=== PATIENT | male | born 1945 | race Caucasian/White ===

== ENCOUNTER 2016-11-28 14:57 | Emergency (ER) | payer OTHER ==
[~2016-11-28] VITALS: Ht 177.8 cm; Wt 108.9 kg
--- NOTE | 2016-11-28 15:11 | NUR ---
ARRIVAL PT ARRIVED AMBULATORY TO ER 4 C/O "HIGH BLOOD SUGAR". PT STATES BLOOD GLUCOSE WAS 500MG/DL AT HOME, [facility]. PT DENIES ANY SYMPTOMS. NO ACUTE DISTRESS NOTED. EDP NOTIFIED OF PT ARRIVAL.
--- NOTE | 2016-11-28 15:15 | NUR ---
BLOOD GLUCOSE PT BLOOD GLUCOSE 439MG/DL AT THIS TIME. EDP NOTIFIED.
[2016-11-28] MEDS ORDERED: LISI-410 PO (15:23)
[2016-11-28] MEDS ORDERED: CARV25TA PO (15:23)
[2016-11-28] MEDS ORDERED: GLIP10TA13 PO (15:23)
[2016-11-28] MEDS ORDERED: ASPI-484 PO (15:23)
[2016-11-28] MEDS ORDERED: METF10002 PO (15:23)
[2016-11-28] MEDS ORDERED: MAGN400C PO (15:23)
[2016-11-28] MEDS ORDERED: HYDR12.58 PO (15:23)
[2016-11-28] MEDS ORDERED: WARF5TAB7 PO (15:23)
[2016-11-28] MEDS ORDERED: PRAV40TA2 PO (15:23)
--- NOTE | 2016-11-28 15:24 | ER.PDOC ---
General Chief Complaint: Requesting Medical Care Stated Complaint: HIGH BLOOD SUGAR TRAVEL OUT OF US: No Time seen by MD: 15:17 Source: patient Exam Limitations: no limitations History of Present Illness Initial Comments Pt found to have elevated BG no symptoms whatsoever Timing/Duration: unsure Severity: mild Allergies: Coded Allergies: codeine (Verified Allergy, Unknown, Shortness of Breath, 11/28/16) morphine (Verified Allergy, Unknown, Shortness of Breath, 11/28/16) Home Meds Reported Medications Aspirin (ASPIR 81) 81 Mg Tablet.dr, 1 TAB PO DAILY, #30 TAB 5 Refills 11/28/16 Pravastatin Sodium (PRAVASTATIN SODIUM) 40 Mg Tablet, 1 TAB PO DAILY, #90 TAB 1 Refill 11/28/16 Warfarin Sodium (WARFARIN SODIUM) 5 Mg Tablet, 1 TAB PO DAILY, #90 TAB 1 Refill 11/28/16 Magnesium Oxide (MAGNESIUM) 400 Mg Capsule, 250 MG PO DAILY, CAPSULE 11/28/16 Hydrochlorothiazide (HYDROCHLOROTHIAZIDE) 12.5 Mg Tablet, 1 TAB PO DAILY, #30 TAB 5 Refills 11/28/16 Lisinopril (LISINOPRIL) 20 Mg Tablet, 1 TAB PO DAILY, #30 TAB 5 Refills 11/28/16 Carvedilol 25MG (COREG 25MG) 25 Mg Tablet, 1 TAB PO BID, #60 TAB 5 Refills 11/28/16 Metformin Hcl (METFORMIN HCL) 1,000 Mg Tablet, 1 TAB PO BID, #60 TAB 5 Refills 11/28/16 Glipizide (GLIPIZIDE) 10 Mg Tablet, 2 TAB PO BID, #180 TAB 3 Refills 11/28/16 Reviewed Nursing Reviewed: Vital Signs, Abn. Noted, Nursing Assessment Review of Systems Constitutional: see HPI EENTM: see HPI Respiratory: see HPI Cardiovascular: see HPI Gastrointestinal: see HPI Genitourinary: see HPI Musculoskeletal: see HPI Skin: see HPI Psychiatric/Neurological: see HPI Hematologic/Lymphatic: see HPI Immunological/Allergic: see HPI Physical Exam General Appearance: No Apparent Distress, WD/WN EENT: eyes nml inspection, nml ENT inspection Neck: Non-Tender, Full Range of Motion, Supple, Normal Inspection Respiratory: chest non-tender, lungs clear, normal breath sounds, no respiratory distress CVS: no murmur, other (uirregularly irregular) Gastrointestinal: Normal Bowel Sounds, No Organomegaly Back: Normal Inspection, No CVA Tenderness Extremities: Normal Range of Motion, Non-Tender, Pedal Edema (2/6) Neurologic/Psychiatric: obstetrics/gynecology nurse II-XII NML as Tested, No Motor/Sensory Deficits, Normal Mood/Affect, Oriented x 3 Skin: Normal Color, Warm/Dry Lymphatic: No Adenopathy Results/Orders Results/Orders Laboratory Tests Test 11/28/16 15:48 White Blood Count 6.2 10^3/uL (4.5-11.0) Red Blood Count 3.89 10^6/uL (4.50-5.90) Hemoglobin 12.8 g/dL (13.9-16.3) Hematocrit 36.6 % (37.0-53.0) Mean Corpuscular Volume 94.1 fL (78-100) Mean Corpuscular Hemoglobin 32.9 pg (26-34) Mean Corpuscular Hemoglobin Concent 35.0 g/dL (33-37) Red Cell Distribution Width 13.1 % (11.5-14.5) Platelet Count 133 10^3/uL (150-400) Mean Platelet Volume 12.0 fL (7.8-11.0) Neutrophils (%) (Auto) 57.4 % (41.0-85.0) Lymphocytes (%) (Auto) 25.8 % (24.0-44.0) Monocytes (%) (Auto) 9.8 % (5.0-12.0) Neutrophils # (Auto) 3.6 10^3/uL (1.8-7.7) Lymphocytes # (Auto) 1.6 10^3/uL (1.0-4.8) Monocytes # (Auto) 0.6 10^3/uL (0.3-0.8) Absolute Immature Granulocyte (auto 0.01 10^3 u/L (0-2) Eosinophils % 6.3 % (0.0-5.0) Basophils % 0.5 % (0.0-0.2) Basophils # 0.0 10^3/uL (0.0-0.1) Eosinophil Count 0.4 10^3/uL (0.0-0.2) Prothrombin Time 27.5 SEC (9.8-11.9) Prothromb Time International Ratio 2.6 Activated Partial Thromboplast Time 32.5 SEC (24.67-30.72) Sodium Level 135 mmol/L (132-145) Potassium Level 4.3 mmol/L (3.6-5.2) Chloride Level 102.0 mmol/L (96-109) Carbon Dioxide Level 24.7 mmol/L (20.0-32) Anion Gap 12.6 Blood Urea Nitrogen 20 mg/dL (7-18) Creatinine 1.28 mg/dL (0.59-1.40) Estimated GFR () 67.2 BUN/Creatinine Ratio 15.0 Glucose Level 438 mg/dL (70-110) Calculated Osmolality 301.1 Calcium Level 8.7 mg/dL (8.4-10.5) Total Bilirubin 0.9 mg/dL (0.2-1.0) Aspartate Amino Transf (AST/SGOT) 18 U/L (0-35) Alanine Aminotransferase (ALT/SGPT) 19 U/L (12-78) Alkaline Phosphatase 118 U/L (50-136) Total Creatine Kinase 130 U/L (39-308) Creatine Kinase MB 0.5 ng/mL (0.5-3.6) Troponin I < 0.02 ng/mL (0.00-0.05) Pro-B-Type Natriuretic Peptide 391 pg/mL (0-125) Total Protein 7.3 g/dL (6.4-8.2) Albumin 3.3 g/dL (3.4-5.0) Globulin 4.0 Percent Immature Gran (Cell Imm) 0.20 % (0.00-0.50) Departure Time of Disposition: 16:33 Disposition: 01 HOME, SELF-CARE Impression: Primary Impression: Hyperglycemia Additional Impression: Diabetes type 2, uncontrolled Condition: Stable Patient Instructions: Diabetes Meal Planning Guide, Diabetes Mellitus Autoantibody Panel JULI PONCE MD Nov 28, 2016 15:24
[2016-11-28 16:00] LABS: BASOPHIL % 0.5 % (0.0-0.2); EOSINOPHIL # 0.4 10^3/uL (0.0-0.2); EOSINOPHIL % 6.3 % (0.0-5.0); HEMATOCRIT 36.6 % (37.0-53.0); HEMOGLOBIN 12.8 g/dL (13.9-16.3); LYMPHOCYTES # 1.6 10^3/uL (1.0-4.8); LYMPHOCYTES % 25.8 % (24.0-44.0); MEAN CELL HGB 32.9 pg (26-34); MEAN CORP VOLUME 94.1 fL (78-100); MONOCYTES # 0.6 10^3/uL (0.3-0.8); MONOCYTES % 9.8 % (5.0-12.0); NEUTROPHIL # 3.6 10^3/uL (1.8-7.7); NEUTROPHILS % 57.4 % (41.0-85.0); RED CELL DISTRIBUTION WIDTH 13.1 % (11.5-14.5); WHITE BLOOD CELL 6.2 10^3/uL (4.5-11.0)
[2016-11-28 16:26] LABS: ALANINE AMINOTRANSFERASE 19 U/L (12-78); ALKALINE PHOSPHATASE 118 U/L (50-136); ASPARTATE AMINO TRANSFERASE 18 U/L (0-35); CALCIUM 8.7 mg/dL (8.4-10.5); CARBON DIOXIDE 24.7 mmol/L (20.0-32)
[2016-11-28 16:30] LABS: GLUCOSE 438 mg/dL (70-110)
[2016-11-28] MEDS ORDERED: NOVOLIN R SUBCUT STA (16:32)
[2016-11-28] MEDS ORDERED: NOVOLIN R ONE (16:33)
--- NOTE | 2016-11-28 16:51 | NUR ---
BLOOD GLUCOSE BLOOD GLUCOSE 317MG/DL AT THIS TIME.
[2016-11-28 17:02] VITALS: BP 151/76
== END 2016-11-28 16:51 | disposition home or self-care (01) ==
LOC: ER 14:57
DX: E11.65 Type 2 diabetes mellitus with hyperglycemia (principal); R60.0 Localized edema; Z88.5 Allergy status to narcotic agent; Z79.82 Long term (current) use of aspirin; Z79.899 Other long term (current) drug therapy
CPT/HCPCS: 36415; 80053; 82550; 82553; 82948; 83880; 84484; 85025; 85610; 85730; 93005; 96372; 99285; J1815